=== PATIENT | male | born 1965 | race Caucasian/White ===

== ENCOUNTER 2025-05-04 10:20 | Emergency (ER) | payer OTHER, SELFPAY ==
[2025-05-04] VITALS (7 sets, daily range): BP systolic 99–123; BP diastolic 64–84; BMI 35.8
[2025-05-04 10:36] LABS: Hematocrit 42.8 % (39.0-52.0); Hemoglobin 15.0 g/dL (13.0-18.0); Mean Corp Hgb Conc. 35.0 g/dL (33.0-37.0); Mean Corpuscular Volume 84.9 fL (80.0-94.0); Nucleated Red Blood Cells % 0 % (-); Platelet Count 202 10^3/uL (130-400); Red Cell Dist. Width 12.7 % (11.5-14.5)
--- NOTE | 2025-05-04 10:36 | ED.GENMED ---
History of Present Illness
General
Chief Complaint: Fainting/Passed Out
Time Seen by Provider: 05/04/25 10:36
History of Present Illness
History of Present Illness:
FOCUSED PAST MEDICAL HISTORY
- High blood pressure, high cholesterol
REVIEW OF OLD RECORDS
- No old records available for review in [facility]
Note:
CHIEF COMPLAINT(S)
Syncope
HISTORY OF PRESENT ILLNESS
The patient is a 60-year-old male with a history of hypertension, who presented to the emergency department after experiencing syncope at [employer]. The patient reported having flu-like symptoms, including fever, cough, congestion, and body aches, but
noted he was starting to feel better. He mentioned being off work for two days due to the illness. Despite feeling improved, he passed out while sitting during a [employer] service. He recalls becoming unresponsive and waking up surrounded by concerned
individuals. The patient reports no shortness of breath or chest pain. He denies any ongoing respiratory issues.
The patient was noted to have lower than average blood pressure readings both pre-hospital by EMS and upon arrival. Current measurements include a blood pressure of 101/84 mmHg. EMS noted an even lower reading prior to arrival. He also reports
having dry lips, suggesting possible dehydration. The initial lab work, including white blood cell count and hemoglobin, returned within normal limits. The patient was provided with intravenous fluids for rehydration.
PAST MEDICAL AND SURIGICAL HISTORY
Hypertension
CHRONIC MEDICAL CONDITIONS SIGNIFICANTLY AFFECTING CARE
Hypertension
MEDICATIONS
The patient takes Lisinopril and Hydrochlorothiazide in combination with Losartan. He is unclear about the specific dosage but believes it is on the lower end. Additionally, he mentioned taking Pravastatin.
PHYSICAL EXAM
General: Alert, no acute distress. Mildly hypotensive.
Skin: Warm, dry, noted dry oral mucosa.
Head: Normocephalic, atraumatic.
Neck: Supple, trachea midline.
Eye Ears, nose, mouth and throat: Oral mucosa moist.
Cardiovascular: Normal peripheral perfusion, No edema. No murmurs. Heart rate around 60.
Respiratory: Respirations are non-labored, auscultation of lungs was clear.
Gastrointestinal: Abdomen nondistended
Back: Normal range of motion, Normal alignment.
Musculoskeletal: Normal range of motion, normal strength.
Neurological: Alert and oriented to person, place, time, and situation.
Psychiatric: Cooperative, appropriate mood & affect.
PLAN
- Continue intravenous fluid administration to address mild dehydration.
- Monitor blood pressure; avoid administration of blood pressure medication until hypertensive status stabilizes post-syncope and flu recovery.
- Further blood work pending, after which reassessment and further plan details will be formulated.
DIFFERENTIAL DIAGNOSIS
The Differential Diagnosis includes, in no particular order and is not limited to:
1. Vasovagal syncope
2. Orthostatic hypotension
3. Dehydration-induced syncope
4. Medication-related hypotension
5. Cardiac arrhythmia
6. Myocardial infarction
7. Stroke or transient ischemic attack
8. Neurological syncope
9. Infection-related syncope
10. Electrolyte imbalance
EKG
- Sinus 59, normal axis, no acute ST abnormality
LABS
- White count and hemoglobin are normal, chemistries unremarkable
SUMMARY OF ENCOUNTER
The patient, a 60-year-old male with a history of hypertension, presented to the ED after experiencing syncope during a [employer] service. He had been experiencing flu-like symptoms in recent days, including fever, cough, congestion, and body aches.
Prior to hospitalization, he had low blood pressure readings and dry lips, suggesting dehydration. Lab work returned within normal limits aside from a positive flu test. Intravenous fluids were administered for rehydration, and the patient reported
feeling better following treatment. There was discussion of Tamiflu but it was not deemed necessary by the physician.
DISPOSITION
The patient will be discharged with instructions to monitor blood pressure at home and possibly hold blood pressure medication temporarily.
ASSESSMENT
Suspected dehydration due to flu leading to possible medication-related hypotension and syncope.
PLAN
- Continue monitoring blood pressure at home.
- Temporarily hold blood pressure medications for a day due to concern of hypotension. Evaluate how the patient feels and resume if readings are normal.
- Discharge with guidance to monitor symptoms and follow up if necessary.
INDEPENDENT REVIEW OF LABS AND INTERPRETATION OF TESTS
My independent review of initial lab work indicates results were within normal limits except for a positive influenza test.
PATIENT EDUCATION AND COUNSELING
The patient was advised on the importance of monitoring blood pressure at home and given guidance on when to resume medication based on readings. Education was also provided regarding the signs of dehydration and when to seek further medical
attention.
FOLLOW-UP INSTRUCTIONS
Please call the office immediately to schedule a follow-up visit if symptoms persist or new symptoms develop.
MEDICATION RECONCILIATION
No new medications were prescribed or administered during the visit. Temporary holding of blood pressure medication was advised as part of the treatment plan.
MEDICAL DECISION MAKING
- Number and Complexity of Problems Addressed:
Chronic conditions affecting care: Hypertension
DDx: Vasovagal syncope, orthostatic hypotension, dehydration-induced syncope, medication-related hypotension.
- Data:
Category 1
Clinical information was obtained during the patients evaluation and after reviewing normal lab results aside from the flu test.
-Risk:
Consideration of Admission/Observation: Escalation of care, including admission/observation, was considered given the complexity and risk of the patients presenting complaint and underlying conditions. However, discharge was deemed appropriate as
work-up was reassuring, symptoms were controlled upon reevaluation, and vitals stable.
DIAGNOSIS
- Dehydration (E86.0)
- Influenza (J11.1)
- Syncope (R55)
UPDATE
- Syncopal event at [employer] in the setting of feeling dehydrated
- He did take his BP meds earlier today including losartan with hydrochlorothiazide and carvedilol
- Patient was given a liter of fluid and now feels markedly improved after fluids were given
- Suspect influenza that led to dehydration but he took his blood pressure medications today
- Currently markedly improved and he we will hold his blood pressure medications tomorrow
Phy Exam
Physical Exam
Physical Exam:
See HPI
Course
Orders/Labs/Results
Orders:
Orders
05/04/25 10:23
Electrocardiogram (*1) Urgent
Reason for Study: Chest Pain
EKG- Treatment ONCE
05/04/25 10:25
Complete Blood Count/With Diff Urgent
Comprehensive Metabolic Panel Urgent
Troponin I Urgent
05/04/25 10:57
Influenza A+B Rapid Molecular Urgent
[place] Source: Nasal Swab
Specimen Description:
Abnormal Lab Results
05/04/25
10:25
Absolute Monos (auto) 1.0 H 10^3/uL
(0.1-0.6)
Immature Gran % 0.6 H %
(0-0.5)
Monocytes % 19.1 H %
(1.7-9.3)
BUN 21 H mg/dl
(9-20)
Glucose 141 H mg/dl
(70-99)
05/04/25 10:25
05/04/25 10:25
Vital Signs
Initial and Last Documented VS:
Initial Vital Signs
Temp Resp Pulse Ox
36.8 C 16 99
05/04/25 10:20 05/04/25 10:20 05/04/25 10:20
Last Documented Vital Signs
Temp Pulse Resp BP Pulse Ox
36.8 C 70 15 116/74 99
05/04/25 10:20 05/04/25 13:00 05/04/25 13:00 05/04/25 13:00 05/04/25 13:00
*Pulse Oximetry
SaO2: 92
Patient hypoxic: no
*Critical Care Note
Total Time (30-74mins, 75-104mins- exclusive of procedures): Not Applicable
ED Attending Note
-
Portions of this chart may have been created with voice recognition software.� Occasional wrong word or��sound alike� substitutions may have occurred due to the inherent limitations of voice recognition software.
Discharge Plan
Departure
Referrals:
Nasim Burns DO [Family Provider, Family Practice]
Interventions
Interventions:
*General Assessment Last Done: 05/04/25 10:20
*Neglect/Abuse Screening Last Done: 05/04/25 10:20
[facility] Risk Assessment Tool Last Done: 05/04/25 10:21
*Risk Screen - Suicide (C-SSRS) Last Done: 05/04/25 10:20
ED- Cardiac Assessment Last Done: 05/04/25 10:20
ED- Neurological Assessment Last Done: 05/04/25 10:20
Discharge Date and Time
Print Language: JAPANESE
[2025-05-04 10:53] LABS: ALT (SGPT) 39 U/L (0-50); AST (SGOT) 34 U/L (17-59); Albumin 3.6 g/dl (3.5-5.0); Alkaline Phosphatase 51 U/L (38-126); Blood Urea Nitrogen 21 mg/dl (9-20); Calcium 8.7 mg/dl (8.4-10.2); Carbon Dioxide 23 mmol/L (22-30); Chloride 105 mmol/L (98-107); Estimated Creatinine Clearance 89 ml/min; Glucose 141 mg/dl (70-99); Potassium 3.8 mmol/L (3.5-5.1); Sodium 135 mmol/L (135-145); Total Protein 6.9 g/dl (6.3-8.2); eGFR > 60.00
[2025-05-04 11:04] LABS: Troponin I < 0.012 ng/ml
== END 2025-05-04 14:44 | disposition home or self-care (01) ==
LOC: EMR 10:20
PROVIDERS: EMERGENCY PHYSICIAN Emergency Medicine; FAMILY PHYSICIAN Family Medicine
DX: R55 Syncope and collapse (principal); E86.0 Dehydration; J11.1 Influenza due to unidentified influenza virus with other respiratory manifestations; R05.9 Cough, unspecified; I10 Essential (primary) hypertension; E78.00 Pure hypercholesterolemia, unspecified
CPT/HCPCS: 99283; 80053; 84484; 85025; 87502; 93005